=== PATIENT | female | born 1970 | race African-American/Black ===

== ENCOUNTER 2017-08-20 09:31 | Emergency (ER) | payer MEDICARE, MEDICAID ==
[~2017-08-20] VITALS: Ht 162.6 cm; Wt 80.0 kg
[2017-08-20] MEDS ORDERED: KETOROLAC 60MG/2ML VIAL IM ONE (13:15)
[2017-08-20 14:34] VITALS: BP 126/81
== END 2017-08-20 14:34 | disposition home or self-care (01) ==
LOC: ER 09:59
DX: S46.912A Strain of unspecified muscle, fascia and tendon at shoulder and upper arm level, left arm, initial encounter (principal); V89.2XXA Person injured in unspecified motor-vehicle accident, traffic, initial encounter; Y93.89 Activity, other specified; Y92.411 Interstate highway as the place of occurrence of the external cause; Y99.8 Other external cause status
CPT/HCPCS: 81025; 96372; 99283; J1885